=== PATIENT | male | born 1975 | race Caucasian/White ===

== ENCOUNTER 2021-12-27 10:47 | Emergency (ER) | payer OTHER ==
[~2021-12-27] VITALS: Ht 175.3 cm; Wt 102.1 kg
[2021-12-27 11:05] VITALS: BP 132/92
--- NOTE | 2021-12-27 11:14 | NUR ---
46 y/o male ambulated to bed 2, pt states he missed a step and put all weight on right foot to break fall, pt states he felt a tearing sensation in right thigh and has difficulty ambulating pmh: vitiligo, left achilles tendon surgery 10 years ago nka med: ibuprofen 800mg (some relief) yesterday at 2114, nothing today
[2021-12-27] MEDS ORDERED: METH-1681 PO (11:33)
[2021-12-27] MEDS ORDERED: NAPR-54 PO (11:33)
--- NOTE | 2021-12-27 11:39 | NUR ---
Patient discharged with v/s stable. Written and verbal after care instructions given and explained. Patient alert, oriented and verbalized understanding of instructions. Ambulatory with steady gait. All questions addressed prior to discharge. ID band removed. Patient advised to follow up with PMD. Rx of roboxin, naproxen given. Patient educated on indication of medication including possible reaction and side effects. Opportunity to ask questions provided and answered.
== END 2021-12-27 11:39 | disposition home or self-care (01) ==
LOC: MED 10:47
DX: S76.911A Strain of unspecified muscles, fascia and tendons at thigh level, right thigh, initial encounter (principal); Z79.899 Other long term (current) drug therapy; X58.XXXA Exposure to other specified factors, initial encounter; Y93.01 Activity, walking, marching and hiking; Y92.89 Other specified places as the place of occurrence of the external cause; Y99.8 Other external cause status
CPT/HCPCS: 99283